=== PATIENT | female | born 1980 | race Caucasian/White ===

== ENCOUNTER 2021-04-16 00:39 | Inpatient (IN) | payer BC, SELFPAY ==
[~2021-04-16] VITALS: Ht 162.6 cm; Wt 68.5 kg
[2021-04-16 00:45] VITALS: BP 158/98
--- NOTE | 2021-04-16 01:10 | NUR ---
PT BIB SELF FOR C/C EPIGASTRIC PAIN THAT RADIATES TO MID BACK. SUDDEN ONSET X 1 HOUR AGO. PT REPORTS ABDOMINOPLASTY WITH LIPOSUCTION AND BREAST AUGMENTATION X 4 DAYS AGO. PT REPORTS SHE HAS BEEN TAKING HER MEDICATIONS PRESCRIBES (ABX, LAXATIVE, ANTINAUSEA, PAIN MEDICATIONS.) + NAUSEA, - VOMITING. PT REPORTS SHE HAD A F/U WITH HER SURGEON YESTERDAY, BUT WAS NOT IN THIS TYPE OF PAIN. PT STATES "THIS SAME PAIN HAPPENED IN 2012 AND THEY COULD'T FIGURE OUT WHAT WAS WRONG WITH ME." MED HX: ABDOMINOPLASTY, LIPOSUCTION, BREAST AUGMENTATION ALLERGIES: NKA
--- NOTE | 2021-04-16 01:33 | NUR ---
DR. JONES AT BEDSIDE FOR MSE
[2021-04-16] MEDS ORDERED: NACL 0.9% 1,000 ML IV ONE (01:40)
[2021-04-16] MEDS ORDERED: MORPHINE SULFATE 4 MG/ML SYR IVP ONE ×2 (01:40→02:25)
[2021-04-16] MEDS ORDERED: ONDANSETRON 4 MG/2 ML VIAL IVP ONE ×2 (01:40→02:25)
[2021-04-16] MEDS ORDERED: ONDANSETRON 4 MG/2 ML VIAL ONE (01:42)
[2021-04-16] MEDS ORDERED: MORPHINE SULFATE 4 MG/ML SYR ONE (01:42)
[2021-04-16 01:45] LABS: BASOPHILS % (AUTO) 0.4 % (0.0-2.0); EOSINOPHILS # (AUTO) 0.1 K/uL (0-0.4); HEMATOCRIT 35.9 % (36-48); HEMOGLOBIN 11.9 g/dL (12.0-16.0); LYMPHOCYTES # (AUTO) 1.9 K/uL (2.5-16.5); MEAN CORPUSCULAR HEMOGLOBIN 30 pg (27-31); MEAN CORPUSCULAR HGB CONC 33 g/dL (33-37); MONOCYTES # (AUTO) 0.5 K/uL (0.8-1.0); MONOCYTES % (AUTO) 5.4 % (1.7-9.3); NEUTROPHILS # (AUTO) 6.6 K/uL (1.8-7.7); NEUTROPHILS % (AUTO) 72.2 % (42.2-75.2); PLATELET COUNT (AUTO) 330 K/uL (140-450); RED BLOOD CELL COUNT(AUTO) 3.99 MIL/uL (4.20-5.40); RED CELL DISTRIBUTION WIDTH 13.4 % (11.6-13.7); WHITE BLOOD COUNT (AUTO) 9.1 K/uL (4.8-10.8)
[2021-04-16 02:00] LABS: ALBUMIN 3.3 g/dL (3.4-5.0); ANION GAP 12.3 (8-16); CARBON DIOXIDE 29.2 mmol/L (21-32); CREATININE 0.9 mg/dL (0.6-1.3); POTASSIUM 4.5 mmol/L (3.5-5.1); TOTAL BILIRUBIN 0.6 mg/dL (0.0-1.0)
--- NOTE | 2021-04-16 02:06 | NUR ---
US AT BEDSIDE.
--- NOTE | 2021-04-16 02:25 | NUR ---
VERBAL ORDER FROM MD JONES FOR MORPHINE 4MG IVP AND ZOFRAN 4MG IVP. ORDER PLACED.
[2021-04-16] MEDS ORDERED: ACET-9525 PO (02:42)
[2021-04-16] MEDS ORDERED: GABA300C PO (02:42)
--- NOTE | 2021-04-16 02:42 | NUR ---
OBTAINED BLANKET FROM PTS SIGNIFICANT OTHER, GIVEN TO PT. SIGNIFICANT OTHER WILL GO HOME AND SEND PICTURES OF PTS CURRENT MED REC. WILL FOLLOW-UP.
[2021-04-16] MEDS ORDERED: KETOROLAC 30 MG/ML VIAL IVP PRN (02:45)
[2021-04-16] MEDS ORDERED: MORPHINE SULFATE 2 MG/ML SYR IVP PRN (02:45)
--- NOTE | 2021-04-16 03:15 | NUR ---
PT AMBULATED TO RESTROOM AND BACK TO BED WITH EVEN AND STEADY GAIT. URINE SAMPLE COLLECTED AND HAND GIVEN TO RIC YEPEZ TECH, AT BEDSIDE.
[2021-04-16] MEDS: DEXT 5% / NACL 0.9% 1,000 ML IV SCH ×2 (03:24→17:05)
[2021-04-16 03:27] LABS: BILIRUBIN,URINE NEGATIVE (NEGATIVE); BLOOD, URINE NEGATIVE (NEGATIVE); COLOR,URINE YELLOW (YELLOW); LEUKOCYTE ESTERASE ,URINE NEGATIVE (NEGATIVE); NITRITE, URINE NEGATIVE (NEGATIVE); PH,URINE 6.5 (5.0-9.0); UGLUCOSE NEGATIVE (NEGATIVE)
[2021-04-16 03:38] LABS: APPEARANCE,URINE CLEAR (CLEAR)
[2021-04-16] MEDS ORDERED: PIPERACILLIN/TAZOBACTAM 3.375 GM VIAL IV ONE (05:10)
[2021-04-16] MEDS: PIPERACILLIN/TAZOBACTAM 3.375 GM in DEXTROSE 5% 50 ML IV SCH ×3 (05:22→23:56)
--- NOTE | 2021-04-16 05:30 | NUR ---
NEDA COLLECTED AND WALKED TO LAB, GIVEN TO LUCHO BODY LINER.
[2021-04-16] MEDS ORDERED: CEPH250C16 PO (05:39)
[2021-04-16] MEDS ORDERED: SENN-101 PO (05:39)
[2021-04-16] MEDS ORDERED: ONDA4TAB PO (05:39)
[2021-04-16] MEDS ORDERED: DOCUSATE SODIUM 100 MG GELCAP PO PRN (07:05)
[2021-04-16] MEDS ORDERED: MAG SULF 2000 MG/WATER PREMIX 50 ML IV PRN (07:05)
[2021-04-16] MEDS ORDERED: SODIUM PHOS / POTASSIUM PHOS 1 PKT PDR PO PRN (07:05)
[2021-04-16] MEDS ORDERED: ACETAMINOPHEN 325 MG TAB PO PRN (07:05)
[2021-04-16] MEDS ORDERED: ONDANSETRON 4 MG/2 ML VIAL IM/IVP PRN (07:05)
[2021-04-16] MEDS ORDERED: POTASSIUM CHLORIDE 40 MEQ, LIDOCAINE MPF 1% 25 MG in NACL 0.9% 250 ML IV PRN (07:05)
--- NOTE | 2021-04-16 07:10 | NUR ---
REPORT GIVEN TO RUDOLPH RASCON FOR CHANGE OF SHIFT.
--- NOTE | 2021-04-16 07:33 | NUR ---
REPORT RECEIVED FROM ED
--- NOTE | 2021-04-16 07:38 | NUR ---
MRSA WAS SWABBED AND GIVEN TO LAB.
--- NOTE | 2021-04-16 07:38 | NUR ---
MADIHA EXPLAINED US RESULTS REQUESTED BY PT.
--- NOTE | 2021-04-16 07:39 | NUR ---
Patient will be admitted to care of QUINTON PERALTA. Admited to [facility]. Will go to room 119A. Belongings list completed. Report to BHUMIKA GALDAMEZ.
[2021-04-16 08:00] VITALS: BP 150/97
--- NOTE | 2021-04-16 08:00 | NUR ---
PT ARRIVED ON UNIT . PT DEMONSTRATED SCARS AND CARLOS DRAIN . PT ABLE TO MAKE NEEDS KNOWN . VS OBTAINED.
[2021-04-16 09:13] LABS: PHOSPHORUS 3.9 mg/dL (2.5-4.9)
[2021-04-16] MEDS: PANTOPRAZOLE 40 MG INJ VIAL IVP SCH (09:31)
[2021-04-16] MEDS: GABAPENTIN 300 MG CAP PO SCH ×2 (09:32→23:55)
--- NOTE | 2021-04-16 09:32 | NUR ---
PT AMBULATED TO RESTROOM INDEPENDENTLY TOLERATED WELL.
--- NOTE | 2021-04-16 09:32 | NUR ---
MEDICATIONS GIVEN PER MD ORDER. PT EDUCATED VERBALIZED UNDERSTANDING . NO QUESTIONS AT THIS TIME. ALL SAFETY MEASURES ARE IN PLACE.
--- NOTE | 2021-04-16 09:56 | NUR ---
PT PROVIDED WITH KALIN UNDERWEAR, SOCKS (NON SLIP) AND EXTRA BLANKET. PT EDUCATED TO REMAIN NPO
--- NOTE | 2021-04-16 11:39 | NUR ---
STUDENT AT BEDSIDE. PT RESTING COMFORTABLY NO S/SX OF DISTRESS. ALL SAFETY MEASURES ARE IN PLACE.
--- NOTE | 2021-04-16 12:52 | NUR ---
WOUND CARE PERFORMED PT TOLERATED WELL RIGHT CARLOS 30 , L20
--- NOTE | 2021-04-16 13:00 | NUR ---
REASON FOR EVALUATION: ABDOMINAL SURGICAL WOUND. WOUND ASSESSMENT COMPLETED ON THIS 40 Y/O FEMALE ADMITTED TO [facility] UNIT FOR ABDOMINAL PAIN 2/2 GALLSTONES. PATIENT IS FROM HOME. PAST MEDICAL HISTORY INCLUDES DEPRESSION. ALL ABOVE INFORMATION WAS OBTAINED FROM THE ADMISSION H&P. LABS ARE WBC 9.1, H/H 11.9/35.9, GLUCOSE 105, ALBUMIN 3.3. PATIENT IS AAOX4, CALM, APPROPRIATE AFFECT. SKIN IS WARM TO TOUCH, COLOR APPROPRIATE TO ETHNICITY. ORAL MUCOSAL MEMBRANES MOIST. INDEPENDENT IN TURNING AND AMBULATING WITH STEADY GAIT. PLAN OF WOUND CARE DISCUSSED WITH PATIENT AND PRIMARY RN. PATIENT VERBALIZED UNDERSTANDING. PATIENT ADMITTED WITH ABDOMINAL SURGICAL WOUND S/P ABDOMINOPLASTY AND BILATERAL LOWER BREAST WOUNDS S/P BREAST AUGMENTATION. COMORBIDITIES RELATED TO FURTHER SKIN BREAKDOWN SUCH DECREASED ALBUMIN LEVEL. INTEGUMENTARY: - LEFT LATERAL TO MEDIAL TO RIGHT LATERAL ABDOMEN SURGICAL WOUND WITH DERMABOND GLUE S/P ABDOMINOPLASTY AND LIPSUCTION ON 04/12/21. MEASURES 63 X 0.3 X 0 CM. CARLOS DRAIN ON LEFT AND RIGHT LATERAL ABDOMEN PRESENT WITH SANGUINOUS DRAINAGE. NO DEHISCENCE. PERIWOUND INTACT, DRY, PINK. - UNDER LEFT BREAST MEDIAL SURGICAL WOUND WITH DERMABOND GLUE S/P BREAST AUGMENTATION ON 04/12/21. MEASURES 3 X 0.1 X 0 CM. NO DRAINAGE. PERIWOUND INTACT, PINK. - UNDER RIGHT BREAST MEDIAL SURGICAL WOUND WITH DERMABOND GLUE S/P BREAST AUGMENTATION ON 04/12/21. MEASURES 1 X X 0 CM. NO DRAINAGE. PERIWOUND INTACT, PINK. RECOMMENDATIONS: - LEFT LATERAL TO MEDIAL TO RIGHT LATERAL ABDOMEN SURGICAL WOUND - CLEANSE WITH NS, PAT DRY, AND LEAVE TRISTA. - UNDER LEFT BREAST MEDIAL SURGICAL WOUND - CLEANSE WITH NS, PAT DRY, AND LEAVE TRISTA. - UNDER RIGHT BREAST MEDIAL SURGICAL WOUND - CLEANSE WITH NS, PAT DRY, AND LEAVE FLAP MAKER. - ASSESS AND MONITOR SKIN CONDITION QSHIFT.
--- NOTE | 2021-04-16 14:37 | NUR ---
PATIENT HAS BEEN SCREENED AND CATEGORIZED LOW NUTRITION RISK. PATIENT WILL BE SEEN WITHIN 7 DAYS OF ADMISSION. 04/22/[address]
--- NOTE | 2021-04-16 15:50 | NUR ---
PT AMBULATED TO RESTROOM . PT TOLERATED WELL. FAMILY MEMBER AT BEDSIDE
--- NOTE | 2021-04-16 16:50 | NUR ---
PT PROVIDED WITH WIPES FOR SPONGE BATH PT PERFORMED WITH ASSISTANCE OF FAMILY MEMBER. PT ABLE TO PERFORM INDEPENDENTLY . PT TOLERATED WELL.
[2021-04-16 18:00] VITALS: BP 112/72
--- NOTE | 2021-04-16 18:50 | NUR ---
PT RESTING IN BED , COMPLAINS OF PAIN PRN MEDICATION WILL BE GIVEN. PT EDUCATED
[2021-04-16] MEDS: MORPHINE SULFATE 2 MG/ML SYR IVP PRN (19:07)
--- NOTE | 2021-04-16 19:09 | NUR ---
PT COMPLAINS OF PAIN . PRN MEDICATION GIVEN PER MD ORDER
--- NOTE | 2021-04-16 19:12 | NUR ---
PT ENDORSED TO DIESEL FLEET MECHANIC NURSE FOR CONTINUITY OF CARE. PT IN STABLE CONDITION
[2021-04-17] VITALS: BP 120/68
[2021-04-17] MEDS: MORPHINE SULFATE 2 MG/ML SYR IVP PRN ×4 (02:16→17:18)
--- NOTE | 2021-04-17 02:37 | NUR ---
patient alert x4 on room air lungs diminish. temp98.2 has x2 jaguar drianing dark reddish drain incision to abd, healing well and under breast. patient sat 98%. patient npo. has in left arm 20 ga infusing d5ns 80 hour. patient c/o of pain in abdomen. given morphine 2 mg ivp. at 0215. patient ambulates to bath room by self. no signs of acute distress.
[2021-04-17] MEDS: PIPERACILLIN/TAZOBACTAM 3.375 GM in DEXTROSE 5% 50 ML IV SCH ×3 (05:35→20:39)
[2021-04-17 06:13] LABS: BASOPHILS # (AUTO) 0.1 K/uL (0.00-0.22); BASOPHILS % (AUTO) 0.7 % (0.0-2.0); EOSINOPHILS # (AUTO) 0.3 K/uL (0-0.4); EOSINOPHILS % (AUTO) 4.1 % (0.0-4.0); HEMOGLOBIN 10.7 g/dL (12.0-16.0); LYMPHOCYTES # (AUTO) 1.9 K/uL (2.5-16.5); LYMPHOCYTES % (AUTO) 26.8 % (20.5-51.1); MEAN CORPUSCULAR HEMOGLOBIN 30 pg (27-31); MEAN CORPUSCULAR HGB CONC 33 g/dL (33-37); MONOCYTES # (AUTO) 0.4 K/uL (0.8-1.0); MONOCYTES % (AUTO) 5.8 % (1.7-9.3); NEUTROPHILS # (AUTO) 4.4 K/uL (1.8-7.7); NEUTROPHILS % (AUTO) 62.6 % (42.2-75.2); PLATELET COUNT (AUTO) 295 K/uL (140-450); RED BLOOD CELL COUNT(AUTO) 3.56 MIL/uL (4.20-5.40); RED CELL DISTRIBUTION WIDTH 13.6 % (11.6-13.7); WHITE BLOOD COUNT (AUTO) 7.1 K/uL (4.8-10.8)
[2021-04-17 06:37] LABS: ANION GAP 10.7 (8-16); CARBON DIOXIDE 27.7 mmol/L (21-32); CREATININE 0.9 mg/dL (0.6-1.3); POTASSIUM 3.4 mmol/L (3.5-5.1)
--- NOTE | 2021-04-17 06:53 | NUR ---
PATIENT HAD 20CC OUT OF LEFT CARLOS AND 10CC OUT RIGHT CARLOS.
--- NOTE | 2021-04-17 07:21 | NUR ---
PT BEEN ENDORSED BY INTERNATIONAL GUEST COORDINATOR NURSE FOR CONTINUITY OF CARE, POC DISCUSSED. PT IS RESTING COMFORTABLE IN BED WITH NO ACUTE S/S. INFORMED PT OF THE HIDA SCAN AT ROUGHLY 1200. PT IS TO BE NPO AND NOT HAVE OPIOIDS UNTIL AFTER PROCEDURE. PT IS AWARE AND INFORMED AND VERBALIZED UNDERSTANDING. NPO SIGN HUNG. ALL SAFETY MEASURES IN PLACE. CALL LIGHT WITHIN REACH. WILL CONTINUE TO MONITOR.
[2021-04-17 08:00] VITALS: BP 108/68
[2021-04-17] MEDS: GABAPENTIN 300 MG CAP PO SCH ×2 (09:00→20:40)
[2021-04-17] MEDS: PANTOPRAZOLE 40 MG INJ VIAL IVP SCH (09:12)
--- NOTE | 2021-04-17 09:15 | NUR ---
PT BLAYING ON BED, NO COMPLAINS. MORNING MEDICATION GOT ADMINISTRATED ORDER. PO MEDS GOT HOLD NPO ORDER INCLUDING MEDS. ALL SAFETY MEASURES ON PLACE, CALLS LIGHT WITHIN REACH
--- NOTE | 2021-04-17 10:21 | NUR ---
PT IS STABLE IN BED WITH NO ACUTE S/S OF DISTRESS. WILL CONTINUE TO MONITOR.
[2021-04-17 11:11] LABS: ALBUMIN 2.8 g/dL (3.4-5.0); ANION GAP 11.5 (8-16); CARBON DIOXIDE 26.9 mmol/L (21-32); CREATININE 0.9 mg/dL (0.6-1.3); POTASSIUM 3.4 mmol/L (3.5-5.1); TOTAL BILIRUBIN 0.5 mg/dL (0.0-1.0)
--- NOTE | 2021-04-17 11:30 | NUR ---
CONSENT HAS BEEN OBTAINED FOR MRI CONTRAST AND CT CONTRAST.
--- NOTE | 2021-04-17 12:35 | NUR ---
PT IN BED WITH NO ACUTE S/S OF DISTRESS. WILL CONTINUE TO MONITOR.
--- NOTE | 2021-04-17 12:48 | NUR ---
PT PICKED UP FOR HIDA SCAN BY WHEELCHAIR, PT IS IN STABLE CONDITION.
--- NOTE | 2021-04-17 13:51 | NUR ---
PT GIVEN MORPHINE 2MG IN HIDA SCAN. PT IS STABLE IN NUCUELAR MEDICINE RECEIVING HIDA SCAN. PT WILL GO TO CT WITH CONTRAST AFTER.
--- NOTE | 2021-04-17 14:07 | NUR ---
UNABLE TO ADMINISTER FELICITAS ABX DUE TO PT BEING OFF THE UNIT
--- NOTE | 2021-04-17 15:24 | NUR ---
PT BROUGHT BACK FROM CT AND HIDA SCAN. PT HIDA WAS NOT SUCCESSFUL IN VISUALIZING INTESTINES. NUCULEAR MED WILL RETURN AT ROUGHLY 1630 TO TAKE PT BACK TO HIDA SCAN. PT WILL REMAIN NPO AT THIS TIME.
[2021-04-17 16:00] VITALS: BP 109/72
[2021-04-17] MEDS: DEXT 5% / NACL 0.9% 1,000 ML IV SCH ×2 (16:49)
--- NOTE | 2021-04-17 17:18 | NUR ---
PT REPORTS 8/10 PAIN, MEDICATED PER MD ORDER. PT TOLERATED ADMINISTRATION. ALL SAFETY MEASURES IN PLACE, CALL LIGHT WITHIN REACH. WILL CONTINUE TO MONITOR.
--- NOTE | 2021-04-17 18:41 | NUR ---
PT LAYING ON BED, BREATHING EVEN UNLABORED,NO COMPLAIN AT THIS TIME. ALL SAFETY MEASURE ON PLACE, CALLS LIGHT WITHIN REACH
--- NOTE | 2021-04-17 19:31 | NUR ---
PT ENDORSED TO SCARFING MACHINE OPERATOR NURSE FOR CONTINUITY OF CARE, POC DISCUSSED
[2021-04-17] MEDS ORDERED: NACL 0.9% 1,000 ML IV SCH (19:45)
[2021-04-17] MEDS ORDERED: CALCIUM CARB/VIT-D 500 MG/200 IU 1 TAB PO SCH (19:45)
[2021-04-17] MEDS ORDERED: POTASSIUM CHLORIDE 10 MEQ TABER PO SCH (19:45)
--- NOTE | 2021-04-17 20:42 | NUR ---
PATIENT WAS RECEIVED AWAKE AND ALERT, FAMILY BESIDE HER.
--- NOTE | 2021-04-17 21:00 | NUR ---
ALL DUE MEDS AND K REPLACEMENT AND CA REPLACEMENT WERE GIVEN BY MOUTH, TOLERATED WELL.
[2021-04-18] VITALS: BP 103/67
--- NOTE | 2021-04-18 | NUR ---
PATIENT REQUESTED FOR EMILY CRACKER. SERVED 2 PACKETS OF CRACKERS
--- NOTE | 2021-04-18 02:00 | NUR ---
PATIENT WAS CALMLY ASLEEP.
--- NOTE | 2021-04-18 03:00 | NUR ---
PATIENT C/O 6/10 PAIN IN HER SURGICAL SOUND IN HER BELLY, TORADOL WAS GIVEN IV PUSH. TOLERATED WELL BY THE PATIENT.
[2021-04-18] MEDS: PIPERACILLIN/TAZOBACTAM 3.375 GM in DEXTROSE 5% 50 ML IV SCH (04:12)
[2021-04-18 06:29] LABS: BASOPHILS % (AUTO) 0.5 % (0.0-2.0); EOSINOPHILS # (AUTO) 0.2 K/uL (0-0.4); EOSINOPHILS % (AUTO) 3.6 % (0.0-4.0); HEMATOCRIT 31.1 % (36-48); HEMOGLOBIN 10.5 g/dL (12.0-16.0); LYMPHOCYTES # (AUTO) 1.9 K/uL (2.5-16.5); MEAN CORPUSCULAR HEMOGLOBIN 30 pg (27-31); MEAN CORPUSCULAR HGB CONC 34 g/dL (33-37); MEAN CORPUSCULAR VOLUME 90.1 fL (80-94); MONOCYTES # (AUTO) 0.5 K/uL (0.8-1.0); MONOCYTES % (AUTO) 7.4 % (1.7-9.3); NEUTROPHILS # (AUTO) 4.3 K/uL (1.8-7.7); NEUTROPHILS % (AUTO) 61.5 % (42.2-75.2); PLATELET COUNT (AUTO) 299 K/uL (140-450); RED BLOOD CELL COUNT(AUTO) 3.45 MIL/uL (4.20-5.40); RED CELL DISTRIBUTION WIDTH 13.7 % (11.6-13.7); WHITE BLOOD COUNT (AUTO) 6.9 K/uL (4.8-10.8)
[2021-04-18 06:56] LABS: ANION GAP 7.9 (8-16); CARBON DIOXIDE 28.6 mmol/L (21-32); CREATININE 0.9 mg/dL (0.6-1.3); POTASSIUM 3.5 mmol/L (3.5-5.1)
--- NOTE | 2021-04-18 07:20 | NUR ---
RECIEVE REPORT FROM BEAUTY SALES ADVISOR NURSE FOR CONTINUITY OF CARE, POC DISCUSSED. PT IS RESTING COMFORTABLE IN BED WITH NO ACUTE S/S. ALL SAFETY MEASURES IN PLACE. CALL LIGHT WITHIN REACH. WILL CONTINUE TO MONITOR
--- NOTE | 2021-04-18 07:20 | NUR ---
REPORTS WERE GIVEN, TRANSFER OF CARE ENDORSED
[2021-04-18 08:00] VITALS: BP 116/78
[2021-04-18] MEDS: GABAPENTIN 300 MG CAP PO SCH (08:40)
[2021-04-18] MEDS: PANTOPRAZOLE 40 MG INJ VIAL IVP SCH (08:40)
--- NOTE | 2021-04-18 08:40 | NUR ---
ADMINISTERED ALL THE PRESCRIBED MEDICATIONS PER MD ORDER. TOLERATED MEDICATION WILL, NO COMPLAINS ALL SAFETY MEASURES ON PLACE, CALLS LIGHT WITHIN REACH
--- NOTE | 2021-04-18 09:05 | NUR ---
TRICE MONTERO ORDER CONSULTATION WITH Dr. Sosa AND ASK TO MAKE HIM AWARE THAT HE WAS CONSULTED AND MAY NEED TO DO ERCP OR MRCP FOR POSSIBLE DISTAL BILE DUCT OBSTRUCTION. DR MCCLOUD WAS CALLED, DID NOT ANSWER LEFT HIM A MASSAGE WILL TRY TO CALL AGAIN.
--- NOTE | 2021-04-18 11:00 | NUR ---
PT LAYING ON BED, BREATHING EVEN UNLABORED,NO COMPLAIN AT THIS TIME. ALL SAFETY MEASURE ON PLACE, CALLS LIGHT WITHIN REACH
[2021-04-18 11:19] LABS: ALBUMIN 2.6 g/dL (3.4-5.0); BILIRUBIN,DIRECT 0.2 mg/dL (0.0-0.3); TOTAL BILIRUBIN 0.4 mg/dL (0.0-1.0)
--- NOTE | 2021-04-18 12:10 | NUR ---
DR SANTOS WAS CONTACTED REGARD PT CONSULTATION FOR MRCP OR ERCP. HE ASKED TO PUT AN ORDER FOR MRCP AT [facility], ORDER PLACED
--- NOTE | 2021-04-18 13:58 | NUR ---
PT ON BED, NO SIGN OF DISTRESS NOTED, DR ALCANTARA TALKED TO THE PT REGARD THE MRCP. PT VERPLIZE UNDERSTANDING. PT ASKING TO LEAVE AGINST MEDICAL ADVICE. EXPLAINED TO THE PT THE IMPORTANT OF CONTINUING CARE PT VERBALIZE UNDERSTANDING BUT STILL WANT TO LEAVE. PT SIGN AMA DOC.
[2021-04-18] MEDS ORDERED: AMOX-1000 PO (13:59)
--- NOTE | 2021-04-18 16:12 | NUR ---
DC PLANNING: ORDER RECEIVED TO SEND PATIENT TO [facility] FOR MRCP. CM CALLED PATIENTS INSURANCE, [employer] [place] ([phone]), SPOKE WITH ROSE. STATED THAT NO AUTH WAS NEEDED FOR AMBULANCE TRANSPORT OR MRCP, WAS UNWILLING TO PROVIDE BILLING INFORMATION FOR THE AMBULANCE COMPANY. CM ASKED FOR REFERENCE NUMBER FOR THE MRCP, GIVEN NUMBER #[id number]. ROSE STATED THAT THE PATIENT WAS AUTHORIZED THROUGH TODAY AND STATED THAT CLINICAL WOULD NEED TO BE SENT TO CONTINUE AUTH. NETO THEN SPOKE WITH [facility] AND [facility], NEITHER HAD TECHNICIANS AVAILABLE FOR THE PROCEDURE UNTIL NEXT WEEK. NETO THEN CALLED DR. ALCANTARA WHO STATED THAT THE PATIENT IS LEAVING AMA. CM WILL FOLLOW NEEDED.
== END 2021-04-18 16:40 | disposition left against medical advice (07) | DRG 445 ==
LOC: MED 00:39 → MMU 02:48 → MTU 06:04
PROVIDERS: ADMIT Hospitalist; ATTEND Hospitalist
DX: K83.1 Obstruction of bile duct (principal); E44.1 Mild protein-calorie malnutrition; I12.9 Hypertensive chronic kidney disease with stage 1 through stage 4 chronic kidney disease, or unspecified chronic kidney disease; Z20.822 Contact with and (suspected) exposure to COVID-19; N18.2 Chronic kidney disease, stage 2 (mild); F32.9 Major depressive disorder, single episode, unspecified; Z53.29 Procedure and treatment not carried out because of patient's decision for other reasons; D64.9 Anemia, unspecified; R74.01 Elevation of levels of liver transaminase levels; Z79.891 Long term (current) use of opiate analgesic; Z79.1 Long term (current) use of non-steroidal anti-inflammatories (NSAID); Z79.899 Other long term (current) drug therapy; Z90.710 Acquired absence of both cervix and uterus; Z68.25 Body mass index [BMI] 25.0-25.9, adult
CPT/HCPCS: 36415; 76705; 78445; 80048; 80053; 80076; 81003; 82150; 83690; 83735; 84100; 85025; 87081; 93005; 96361; 96365; 96375; 96376; 99285; A9510; C9113; J1885; J2270; J2405; J2543; J7060; Q0092; Q9967